=== PATIENT | male | born 1960 | race Asian ===

== ENCOUNTER 2017-07-13 00:26 | Emergency (ER) | payer SELFPAY ==
[~2017-07-13] VITALS: Ht 165.1 cm; Wt 68.0 kg
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
[2017-07-13] MEDS ORDERED: HYDROCODONE/APAP 5/325MG 1 EACH TABLET ONE (00:56)
[2017-07-13] MEDS ORDERED: HYDROCODONE/APAP 5/325MG 1 EACH TABLET PO ONE (01:00)
[2017-07-13 02:16] VITALS: BP 169/95
--- NOTE | 2017-07-13 02:16 | NUR ---
Patient discharged to home in stable condition. Written and verbal after care instructions given. Patient verbalizes understanding of instruction. VSS UPON DISCHARGE. PT AMBULATED WITH STEADY GAIT NOTED OUT OF ER
== END 2017-07-13 02:19 | disposition home or self-care (01) ==
LOC: ER 00:29
DX: S09.90XA Unspecified injury of head, initial encounter (principal); S13.4XXA Sprain of ligaments of cervical spine, initial encounter; S83.92XA Sprain of unspecified site of left knee, initial encounter; S20.212A Contusion of left front wall of thorax, initial encounter; S70.02XA Contusion of left hip, initial encounter; I10 Essential (primary) hypertension; V43.52XA Car driver injured in collision with other type car in traffic accident, initial encounter; Y93.89 Activity, other specified; Y92.89 Other specified places as the place of occurrence of the external cause; Y99.8 Other external cause status
CPT/HCPCS: 70450; 71100; 72125; 73503; 73564; 99284; A4606; Z7610; 73502